=== PATIENT | female | born 1970 | race Caucasian/White ===

== ENCOUNTER 2018-03-09 06:16 | Inpatient (IN) ==
[~2018-03-09 06:16] MED LIST: RINGER'S SOLUTION,LACTATED 1,000 ML IV PRN; ROPIVACAINE HCL/PF 100 MG, EPINEPHrine 0.2 MG in NORMAL SALINE 100 ML IJ PRN; ceFAZolin SODIUM 1 GM VIAL IV PRN
--- NOTE | 2018-03-09 07:03 | ANES ---
Anesthesia Pre Procedure Eval Vitals/Labs: Last Vital Signs Temp 36.3 C 03/09/18 06:21 Pulse 105 H 03/09/18 06:21 Resp 18 03/09/18 06:21 BP 116/79 03/09/18 06:21 HOME MEDICATIONS Calcium Carbonate/Vitamin D3 [Os-Al 500-Vit D3 200 Caplet] 1 ea PO DAILY 08/12/17 [Last Taken 08/12/17] Multivitamin [One Daily Essential] 1 ea PO DAILY 08/12/17 [Last Taken 08/12/17] diflunisal 500 mg tablet 500 mg PO BID #60 tab 12/02/17 [Last Taken Unknown] baclofen 10 mg tablet 20 mg PO TID PRN tab 02/19/18 [Last Taken Unknown] levothyroxine 125 mcg tablet 112 mcg PO DAILY tab 02/19/18 [Last Taken Unknown] ascorbic acid (vitamin C) 500 mg capsule 1 tab PO DAILY cap 03/02/18 [Last Taken Unknown] duloxetine 60 mg capsule,delayed release 60 mg PO DAILY #90 cap 03/02/18 [Last Taken Unknown] Allergies/Adverse Reactions: Allergies Allergy/AdvReac Type Severity Reaction Status Date / Time acetaminophen [From Tylenol] AdvReac unable to Verified 03/09/18 06:28 digest phentermine AdvReac Nausea Verified 03/09/18 06:28 - Planned Procedure Planned Procedure: Right Total Hip Arthroplasty Medication List Reviewed:: Yes Allergies Verified: Yes Medical History (Last Reviewed 03/09/18 @ 06:54 by Anthony Hassan CRNA) Depression, controlled (Chronic) Anemia, iron deficiency History of breast cancer Onset Date: ~2001 left Iliotibial band syndrome affecting left lower leg Onset Date: ~06/17/17 Impaired renal function disorder pt states left kidney does not empty properly Lung nodule right, unsure of testing Onychomycosis Onset Date: ~06/17/17 Papillary carcinoma of thyroid Onset Date: ~12/07/15 Scapular dyskinesis Onset Date: ~04/19/16 Thyroid nodule Trapezius muscle strain Onset Date: ~04/19/16 left Weight gain, abnormal Onset Date: ~08/15/16 Acromioclavicular joint arthritis Onset Date: ~04/19/16 Arthritis hips and right knee Bone spur hips Chronic pain Chronic sinusitis DDD (degenerative disc disease), cervical DDD (degenerative disc disease), lumbar Hypertension Hypothyroidism Onset Date: ~11/2015 Dr. Muhammad Diverticulitis History of chemotherapy Onset Date: ~2001 Surgical History (Last Reviewed 03/09/18 @ 06:54 by Anthony Hassan CRNA) H/O total vaginal hysterectomy Onset Date: ~2011 H/O tubal ligation Onset Date: ~2009 History of cholecystectomy Onset Date: ~2001 History of hip replacement Onset Date: ~08/13/17 Dr. Bernal: left History of modified radical mastectomy of left breast Onset Date: ~2001 History of thyroidectomy Onset Date: ~11/14/15 Dr. Muhammad Family History (Last Reviewed 03/09/18 @ 06:54 by Anthony Hassan CRNA) Daughter GERD (gastroesophageal reflux disease) Mother Hypertension Sister Fibromyalgia Son GERD (gastroesophageal reflux disease) - Family Anesthesia History Family History:: no untoward family reactions to anesthesia, no familial bleeding tendencies, no family history of clotting disorders, no family history of premature - Airway/Neck/Teeth Within Normal Limits:: Yes Teeth Condition: none Neck Exam: full range of motion Mallampatti Score: 1 Thyromental (T-M) distance: > 6 cm Mandibulo Hyoid distance: > 3 cm - Respiratory Respiratory Physical: lungs clear Smoking Status: Current every day smoker Discussed smoking cessation including day of surgery: Yes - had one this am Sleep Apnea currently treated: No Sleep Apnea by current assessment: No - Cardiovascular Cardiac History: CA - not currently treated Tolerate Activity: Fair Heart Sounds: S1 & S2, Regular - Anesthesia Assessment and Plan ASA Class: PS, II Anesthesia Type Plan: Spinal Planned difficult intubation/equipment available: No
[2018-03-09] MEDS ORDERED: ceFAZolin SODIUM 1 GM in DEXTROSE 5 % IN WATER 100 ML IV ONE ×2 (07:07)
[2018-03-09] MEDS ORDERED: RINGER'S SOLUTION,LACTATED 1,000 ML IV PRN (07:08)
[2018-03-09] MEDS ORDERED: MORPHINE SULFATE 15 MG TABLET.SA PO PRN (07:09)
[2018-03-09] MEDS ORDERED: TRANEXAMIC ACID 1,000 MG in NORMAL SALINE 100 ML IV PRN (07:10)
[2018-03-09] MEDS ORDERED: ZOLPIDEM TARTRATE 5 MG TABLET PO PRN (09:32)
[2018-03-09] MEDS ORDERED: MAG HYDROX/ALUMINUM HYD/SIMETH 30 ML UDC PO PRN (09:32)
[2018-03-09] MEDS ORDERED: diphenhydrAMINE HCL 50 MG/ML VIAL IV PRN (09:32)
[2018-03-09] MEDS ORDERED: ONDANSETRON HCL/PF 2 MG/ML VIAL IV PRN (09:32)
[2018-03-09] MEDS ORDERED: MAGNESIUM HYDROXIDE 30 ML UDC PO PRN (09:32)
[2018-03-09] MEDS ORDERED: BACLOFEN 10 MG TABLET PO PRN (09:34)
--- NOTE | 2018-03-09 09:37 | OR ---
Operative Report - Dictated Report Narrative: Date: 03/09/2018 Preoperative diagnosis: Right hip degenerative joint disease. Postoperative diagnosis: Right hip degenerative joint disease. Procedure: Right Total hip arthroplasty. Surgeon: Renny Bernal M.D. Psychological Assistant: Christofer Murcia PA-C (provided an essential set of skilled, educated and assisted with transfer, positioning, prepping, draping, manipulation, traction, irrigation, suturing, and placement of dressings all of which cannot be performed by the available surgical crew) Anesthesia: Spinal and local periarticular joint injection. Complications: None Specimens: Bone for disposal. Estimated blood loss: 150 milliliters. Retained implants: Depuy [place] size 6 femoral stem standard offset. Size 54 millimeter outside diameter 3-hole [place] Gription acetabular cup. 54 millimeter outside by 36 millimeter inside diameter highly cross-linked acetabular liner. 36 millimeter diameter +5 millimeter ceramic femoral head. Cancellous 6.5mm screw 35 millimeter length Indications: Mrs. Snyder is a 48-year-old female who has had long-standing rig ht hip pain and arthrosis. This patient was followed in my clinic for period of time with significant complaints of right hip pain consistent with arthritic changes. She failed conservative measures including but not limited to activity modification, passage of time, medications, and other conservative measures. Patient wished to proceed with surgical treatment. The risks, benefits, and alternatives were discussed in clinic. The risks of , blood clots, bleeding, infection, nerve/tendon blood vessel/ injury, malposition of components, dislocation and/or instability of joint, intraoperative fracture, postoperative limited range of motion, persistent pain, failure of components, and need for additional procedures. Patient wished to proceed. Consent was obtained after answering all questions. Procedure: After marking the correct extremity on the floor, the patient was taken to the operating room. A timeout was performed. IV antibiotics consisting of Ancef were administered prior to the procedure. A spinal anesthetic was induced by anesthesia. A Blake catheter was inserted. The patient was then transitioned to a lateral position on a well-padded pegboard. An axillary roll was placed. The head was in neutral position. The non- operative down leg was well-padded with SCD and ISAAK hose in place. The arms were supported and padded to protect from any undue pressure on the bony prominences and nerves. A well-padded anterior and posterior pelvic and chest posts were secured in order to maintain a stable position of the pelvis. This was placed so that the pelvis was perpendicular to the floor. The body was in line with the pelvis. Once it was felt that we had protected all the bony prominences and the patient was well secured with a safety belt as well, the leg was pre-scrubbed with alcohol, prepped and draped in a standard sterile fashion. A standard anterior lateral hip incision was marked out over the greater trochanter. Ioban drapes were then placed. The skin incision was then made. Sharp dissection with a scalpel utilizing cautery for hemostasis was carried out down to the gluteus and iliotibial band fascia. This was split in line with the skin incision. The greater trochanter bursa was excised. The anterior and posterior margins of the abductor tendon were identified. The anterior 1/2-1/3 of the tendon was tagged and reflected off the greater trochanter leaving a sleeve of tendon for repair at the completion of the case. This exposed the underlying hip joint capsule. A limb length stitch was placed in the skin and referencedd off a afsaneh on the greater trochanter for evaluation of intraoperative limb lengths. An inverted T-type capsulotomy was made extending this up to the brim of the acetabulum. Using Homans to assist with elevation of the soft tissues off the anterior, superior, and inferior aspects of the femoral neck, the hip was then placed in a figure 4 position and the femoral head was dislocated. With the leg in an externally rotated and adducted position, the cutting flag was utilized in order to afsaneh for a standard femoral neck cut approximately a fingerbreadth above the level of the lesser trochanter. This was done with reference to pre-operative films and overall alignment. This was done while protecting the surrounding soft tissues with Homans. The femoral head was then removed and sized for guidance on preparation of the acetabulum. It was noted that there was loss of articular cartilage on both the femoral head and weightbearing portions of the acetabulum. We then returned the leg to the table and turned our attention to the acetabulum. While protecting the surrounding soft tissues, the labrum and remaining tissue in the fovea were excised using a scalpel and cautery. A series of reamers up to size 54 millimeter were utilized to prepare the acetabulum. The final reamer had good purchase and exposed the bleeding subchondral bone. The acetabulum was then thoroughly irrigated ensuring that all bony and cartilaginous materials were removed, and the final acetabular shell was impacted into place. This was placed in approximately 45 degrees of abduction and 20 degrees of anteversion utilizing the outrigger and body axis for alignment. This had a good press fit. 1 6.5mm cancellous screw was placed in the superior posterior quadrant of the acetabulum. The shell was then thoroughly irrigated and the final polyethylene was impacted into place ensuring that it seated completely. This was then protected with a sponge while we returned our attention to the femur. With the leg in a figure 4 position, utilizing Homans for soft tissue protection, a box cutting osteotome, followed by Charnley awl, followed by serial reamers and broaches were utilized in order to prepare the femur. It was found that a size 6 broach gave good axial and rotational stability. The calcar reamer was utilized in order to clean up the cut edges. The proximal femur was visualized to ensure that there were no signs of fracture. A series of heads and necks were trialed. It was found that a standard offset neck and a + 5 femoral head gave good overall stability. There was minimal longitudinal instability. With the leg in the position of sleep, the femoral head was well covered. Hip range of motion was able to reach full extension and external rotation to greater than 75 degrees prior to impingement along the posterior acetabulum. The hip was able to be flexed to greater than 90 degrees with internal rotation greater than 60 degrees prior to anterior impingement. The li mb lengths were near equal based on comparison to the contralateral side and the prior placed limb length stitch. At this point it was felt these were the appropriately sized femoral components as well as neck and femoral head. The trial implants were removed. The femur was thoroughly irrigated. The final implants were impacted into place, and the hip was reduced. After ensuring that there was no damage to the proximal femur, the standard periarticular joint injection of ropivacaine, Toradol, and epinephrine were injected into the joint capsule and surrounding soft tissues. Anesthesia then administered intravenous tranexamic acid. The capsule was repaired with a single interrupted #1 Vicryl. The abductor tendon was repaired to the greater trochanter utilizing #5 Ethibond through drill holes. This was oversewn with #1 Vicryl. The fascia was closed with interrupted #1 Vicryl. The wounds were thoroughly irrigated as we closed in layers. The deep and subcutaneous fat layers were closed with 0 and 3-0 Vicryl respectively. The subcutaneous tissue was closed with a running 3-0 Vicryl and the skin frederick. All sponge, needle, blade, and instrument counts were correct prior to closing the wounds. Sterile dressings consisting of xeroform, 4 x 4's, and tape were applied. The patient was awoken and transferred to her hospital bed and then to the postanesthesia care unit in stable condition. Postoperative condition: The plan is to admit to the medical/surgical inpatient floor postoperatively. There will be a projected 1 to 3 day hospital stay. Postoperatively 24 hours of IV antibiotics, pain control, physical therapy, occupational therapy, and medical comanagement will be utilized. Patient will be weightbearing as tolerated with anterior hip precautions. Postoperative films will be obtained in the recovery room.
[2018-03-09] MEDS: DEXTROSE 5%-LACTATED RINGERS 1,000 ML IV PRN ×2 (10:19→18:35)
[2018-03-09] MEDS: KETOROLAC TROMETHAMINE 15 MG/ML VIAL IV SCH ×3 (10:42→23:23)
[2018-03-09] MEDS: ceFAZolin SODIUM 1 GM in DEXTROSE 5 % IN WATER 100 ML IV SCH ×6 (10:56→23:27)
--- NOTE | 2018-03-09 13:44 | ANES ---
Post Anesthesia Discharge - Transfer of Care Transfer of Care handoff given to nurse: Yes - Discharge from PACU Discharge from PACU when meets criteria: Yes
--- NOTE | 2018-03-09 13:45 | ANES ---
Post Anesthesia Assessment - Vital Signs Vitals: Last Vital Signs Temp 36.7 C 03/09/18 11:04 Pulse 66 03/09/18 11:34 Resp 16 03/09/18 11:34 BP 118/81 03/09/18 11:34 Pulse Ox 100 03/09/18 11:34 Airway Patency: Normal - Mental Status Level Of Consciousness: Awake - Pain Level Pain Score: 0 - N/V Assessment Nausea/Vomiting Presence: None Dehydration:: No
[2018-03-09] MEDS: MORPHINE SULFATE 10 MG/0.5 ML SYRINGE PO PRN ×2 (16:17→19:19)
[2018-03-09] MEDS ORDERED: SENNOSIDES/DOCUSATE SODIUM 1 TAB TABLET PO SCH (21:00)
[2018-03-09] MEDS: MORPHINE SULFATE 15 MG TABLET.SA PO SCH (21:07)
[2018-03-10] MEDS: DEXTROSE 5%-LACTATED RINGERS 1,000 ML IV PRN (03:14)
[2018-03-10] MEDS: KETOROLAC TROMETHAMINE 15 MG/ML VIAL IV SCH ×2 (05:17→10:42)
[2018-03-10 06:03] LABS: Hematocrit 33.4 % (37.0-47.0); Hemoglobin 11.1 gm/dL (12.5-16.0); Mean Cell Volume 94.6 fl (78-100); Mean Corpuscular Hemoglobin 31.4 pg (27-31); Mean Corpuscular Hgb Conc 33.2 g/dl (32-36); Mean Platelet Volume 8.8 fl (8-12.5); Platelet Count 167 K/mm3 (150-450); Red Blood Count 3.53 M/mm3 (4.2-5.4); Red Cell Distribution Width 12.5 % (11.5-14.0); White Blood Count 6.4 K/mm3 (4.0-10.5)
[2018-03-10 06:12] LABS: Anion Gap 10.5 mmol/L (6.8-13.8); BUN/Creatinine Ratio 18.2 (9.0-21.6); Calcium * 7.9 mg/dL (7.9-10.9); Carbon Dioxide 30.6 mmol/L (24-32.6); Estimated Creat Clear 89.5; Potassium 4.1 mmol/L (3.4-4.6)
[2018-03-10] MEDS ORDERED: LEVOTHYROXINE SODIUM 112 MCG TABLET PO SCH (07:00)
[2018-03-10] MEDS ORDERED: ENOXAPARIN SODIUM 40 MG/0.4 ML SYRG SC SCH (08:32)
[2018-03-10] MEDS: MORPHINE SULFATE 15 MG TABLET.SA PO SCH (08:36)
[2018-03-10] MEDS ORDERED: MULTIVITAMINS 1 CAP CAPSULE PO SCH (09:00)
[2018-03-10] MEDS ORDERED: ASCORBIC ACID 500 MG TABLET PO SCH (09:00)
[2018-03-10] MEDS ORDERED: DULoxetine HCL 20 MG CAPSULE.SA PO SCH (09:00)
--- NOTE | 2018-03-10 12:29 | DS ---
(1) Status post total hip replacement, right Problem: Acute (2) Acute blood loss anemia Problem: Acute (3) Hypertension Problem: Chronic (4) Hypothyroid Problem: Chronic Qualifiers: (5) DDD (degenerative disc disease) Problem: Chronic (6) Depression, controlled Problem: Chronic Description of Stay: Mrs. Snyder was admitted to the floor after undergoing right total hip arthroplasty. Tolerated this well. Was admitted to the floor postoperatively for 24 hours of IV antibiotics, pain control, medical comanagement, and occupational and physical therapy. OT and PT were consulted to assist with activities of daily living and ambulation. Was made weightbearing as tolerated with range of motion as tolerated with anterior hip precautions. Pain was initially controlled with IV regimen. This was transitioned to oral once tolerating a by mouth intake. Was resumed on home diet and medications. Had a Blake catheter inserted and the operating room which was discontinued on postoperative day 1. Lovenox SCD and ISAAK hose were utilized for DVT prophylaxis. Vital signs remained stable to the hospital course. Serial labs were obtained which showed a final hemoglobin of 11.1 grams. BMP was reviewed and was stable. Physical examination throughout the hospital course showed an extremity that had sensation that was intact to light touch, palpable pulses, a benign wound, motor intact to the toes, ankle, and knee. . Once an oral pain regimen was tolerated and physical therapy goals were met, it was felt that they were stable for discharge to home. Instructions: Continue with weightbearing as tolerated and range of motion as tolerated. Keep incision covered and dry to shower on the wound if it is not draining. If you note any drainage or for comfort you can cover with dry gauze and tape. Change every 2-3 days as needed. Continue with physical therapy. Resume home diet. Report any fever over 101.5 Fahrenheit, uncontrolled pain, increased drainage, foul odor of drainage, new or increased calf pain or shortness of breath, or any other significant complaints. A 325mg dialy aspirin will be started after finishing anticoagulation if not allergic. Continue with ISAAK hose on the operative extremity until instructed otherwise. No driving until instructed otherwise. Follow up in approximately 10-14 days. Procedures Performed: see notes below List Procedures: Right total hip arthroplasty Results and Findings: Lab Pending Results 03/10/18 06:00: WBC 6.4, RBC 3.53 L, Hgb 11.1 L, Hct 33.4 L, MCV 94.6, MCH 31.4 H, MCHC 33.2, RDW 12.5, Plt Count 167, MPV 8.8 03/10/18 06:00: Sodium 141, Plasma Sodium 141, Potassium 4.1 D, Chloride 104, Carbon Dioxide 30.6, Anion Gap 10.5, BUN 14, Creatinine 0.77, Est GFR (Non-Af Amer) 85 D, BUN/Creatinine Ratio 18.2, Random Glucose 103, Calcium 7.9 Disposition: Home self-care Condition: Good Discharge Activity: Weight bearing, Other - with anterior hip precautions Referrals: Jj Khan MD [Primary Care Provider] - Additional Patient Instructions (free text): Follow up Physical Therapy at [facility] outpatient rehab on ..... Follow up with Dr Bernal Orthopedic appointment on Friday03/24/18 at 9:45am. Prescriptions (Any new or edited meds): Enoxaparin Sodium [Lovenox] 40 mg SC Q24H #7 disp.syrin Morphine Sulfate 1 - 2 tab PO Q4H PRN #60 tab PRN Reason: Pain Morphine Sulfate [Ms Contin] 15 mg PO Q12H #20 tablet.sa Sennosides/Docusate Sodium [Senokot-S] 2 tab PO HS #30 tab Complete Home Medications List: Complete Home Medication List: Calcium Carbonate/Vitamin D3 [Os-Al 500-Vit D3 200 Caplet] 1 ea PO DAILY 08/12/17 Multivitamin [One Daily Essential] 1 ea PO DAILY 08/12/17 diflunisal 500 mg tablet 500 mg PO BID #60 tab 12/02/17 baclofen 10 mg tablet 20 mg PO TID PRN tab 02/19/18 levothyroxine 125 mcg tablet 112 mcg PO DAILY tab 02/19/18 ascorbic acid (vitamin C) 500 mg capsule 1 tab PO DAILY cap 03/02/18 duloxetine 60 mg capsule,delayed release 60 mg PO DAILY #90 cap 03/02/18 EPINEPHrine [Epinephrine 1:1000] 0.2 mg IJ PRN PRN ampul 03/10/18 Enoxaparin Sodium [Lovenox] 40 mg SC Q24H #7 disp.syrin 03/10/18 Morphine Sulfate 1 - 2 tab PO Q4H PRN #60 tab 03/10/18 Morphine Sulfate [Ms Contin] 15 mg PO Q12H #20 tablet.sa 03/10/18 Sennosides/Docusate Sodium [Senokot-S] 2 tab PO HS #30 tab 03/10/18 Amb Orders for Discharge: PT Evaluation and Treatment* Facility: [facility], Location: Rehabilitation Services
[2018-03-10 14:24] VITALS: BP 98/52
[2018-03-11] MEDS ORDERED: DIFLUNISAL 500 MG PO SCH (21:00)
== END 2018-03-10 15:01 | disposition home or self-care (01) | DRG 470 ==
LOC: MS 06:16
PROVIDERS: ADMIT Orthopaedic Surgery; ATTEND Orthopaedic Surgery
DX: F17.210 Nicotine dependence, cigarettes, uncomplicated; I25.2 Old myocardial infarction; J32.9 Chronic sinusitis, unspecified; Z90.12 Acquired absence of left breast and nipple; Z82.49 Family history of ischemic heart disease and other diseases of the circulatory system; Z88.8 Allergy status to other drugs, medicaments and biological substances; Z96.642 Presence of left artificial hip joint; M51.36 Other intervertebral disc degeneration, lumbar region; E89.0 Postprocedural hypothyroidism; M16.11 Unilateral primary osteoarthritis, right hip; M50.30 Other cervical disc degeneration, unspecified cervical region; M17.11 Unilateral primary osteoarthritis, right knee; Z85.3 Personal history of malignant neoplasm of breast; Z85.850 Personal history of malignant neoplasm of thyroid; G89.29 Other chronic pain; D50.9 Iron deficiency anemia, unspecified; M19.019 Primary osteoarthritis, unspecified shoulder; Z88.6 Allergy status to analgesic agent; D62 Acute posthemorrhagic anemia; Z92.21 Personal history of antineoplastic chemotherapy; F32.9 Major depressive disorder, single episode, unspecified; I10 Essential (primary) hypertension
CPT/HCPCS: 36415; 73502; 80048; 85027; 97116; 97161; 97165; 97530